=== PATIENT | female | born 1950 | race African-American/Black ===

== ENCOUNTER 2017-08-25 19:03 | Observation (INO) | payer MEDICARE ==
[~2017-08-25] VITALS: Ht 170.2 cm; Wt 81.8 kg
--- NOTE | ~2017-08-25 | DS ---
PATIENT:MISSY VAN :48 MEDICAL RECORD: [id number] DISCHARGE SUMMARY ADMISSION DATE: 08/25/17 DISCHARGE DATE: 08/26/17 DISCHARGE DIAGNOSES: 1. Chest pain. 2. History of mitral valve prolapse. HOSPITAL COURSE: Mrs. Van presents with chest pain; however, cardiac catheterization reveals no significant coronary artery disease, no mitral valve regurgitation. She was discharged home. No cardiac followup is necessary. TRANSINT:[id number] Voice Confirmation ID: [id number] DOCUMENT ID: [id number] SAHIL EUGENE MD at 1324 CC: [id number] DICTATION DATE: 08/26/17 1228 PEARL STRINGER: 08/27/17 0053 DIS IN 08/26/17 [place] [id number] [place] [address]
--- NOTE | ~2017-08-25 | OP ---
PATIENT NAME: MISSY VAN MEDICAL RECORD: [id number] :48 LOCATION:[facility] ADMISSION DATE:08/25/17 SURGEON: SAHIL EUGENE MD DATE OF OPERATION: 08/26/2017 PROCEDURES: 1. Left heart catheterization. 2. Selective coronary angiography. 3. Left ventriculogram. INDICATION: Angina and chest pain compatible with angina. PROCEDURE IN DETAIL: After informed consent was obtained and after detailed explanation of risks, benefits as well as alternative therapies, the patient elected to proceed with angiogram and heart catheterization. The right radial area was prepped and draped in normal sterile fashion. The right radial artery was cannulated via modified Seldinger technique with placement of 5-Ethiopian sheath. All catheters exchanged through this sheath. FINDINGS: Left ventriculogram was performed in standard 30-degree BUSTOS view, reveals good cardiac wall motion throughout all segments. Overall ejection fraction is 60%. SELECTIVE CORONARY ANGIOGRAPHY: Left main, left anterior descending, left circumflex, and right coronary artery are all smooth-walled vessels with no angiographic evidence of coronary artery disease. OVERALL IMPRESSION: 1. No angiographic evidence of coronary artery disease. 2. Normal left heart pressures. 3. Normal left ventricular systolic function. Chest pain is noncardiac in etiology. TRANSINT:[id number] Voice Confirmation ID: [id number] DOCUMENT ID: [id number] SAHIL EUGENE MD at 1324 CC: [id number] DICTATION DATE: 08/26/17 1227 BEEF GRINDER: 08/26/17 1349 DIS IN 08/26/17 [place] [address] [place] [id number]
--- NOTE | ~2017-08-25 | HEMODYNAMI ---
PATIENT:MISSY VAN MEDICAL RECORD: [id number] : 48 [id number] ADMISSION DATE: 08/25/17 Generatedon:08/26/201712:31 Patient name: MISSY VAN Patient #: [id number] SSN: D OB: 1950 Date of study: 08/26/2017 Page: Of Hemodynamic Procedure Report Patient Data Patient Demographics Procedure consent was obtained First Name: MISSY Gender: Female Last Name: CARLOTA : 1950 [facility] Initial: NOHEMY Age: 67 year(s) Patient #: [id number] Race: Black Additional ID: [id number] Contact details Address: [address] [place] [address] State: [place] City: [place] Zip code: [address] Past Medical History Allergies: No known allergies Admission Admission Data Admission Date: 08/25/2017 Admission Time: 23:38 Room #: D.2237 Lab Results Lab Result Date: 08/26/2017 Lab Result Time: 3:50 Biochemistry Name Units Result Min Max BUN mg/dl 22 --(----)-* 7 18 Creatinine mg/dl 0.8 --(-*--)-- 0.6 1.3 CBC Name Units Result Min Max Hematocrit % 39.2 -*(----)-- 42 54 Hemoglobin g/dl 12.8 -*(----)-- 13.5 17.5 Procedure Procedure Types Cath Procedure Diagnostic Procedure LHC Coronaries only Miscellaneous Procedures Moderate Sedation up to 15 minutes Procedure Description Procedure Date Procedure Date: 08/26/2017 Procedure Start Time: 12:20 Procedure End Time: 12:28 Procedure Staff Name Function Rod Sargent MD Performing Physician Claudy Pink RT Monitor Rosalba Christie RT Scrub Ryder Tobar RN Nurse Procedure Data Cath Procedure Fluoroscopy Diagnostic fluoroscopy Total fluoroscopy Time: 1.5 time: 1.5 min min Diagnostic fluoroscopy Total fluoroscopy dose: 191 dose: 191 mGy mGy Contrast Material Contrast Material Type Amount (ml) Isovue 300 31 Entry Location Entry Primary Successful Side Size Upsize Upsize Entry Closure Mendoza ccessful Closure Location (Fr) 1 (Fr) 2 (Fr) Remarks Device Remarks Radial Right 5 Fr Mechanical artery Compression Estimated blood loss: 5 ml Diagnostic catheters Device Type Used For End Catheter Placement DIAGNOSTIC [place] 110cm 5 Procedure Fr catheter ([id number]) Procedure Complications No complications Procedure Medications Medication Administration Route Dosage Oxygen NC 2 l/min Lidocaine 2% added to field 20 Heparin Flush Bag added to field 2 bags (1000units/500ml NS) 0.9% NaCl I.V. 100 ml/hr Radial Cocktail added to field 1 syringe (Verapomil 2mg/Nitro 400mcg/Heparin 1500units) Versed I.V. 1 mg Fentanyl I.V. 50 mcg Versed I.V. 1 mg Fentanyl I.V. 50 mcg Hemodynamics Rest HGB: 12.8 (g/dl) Heart Rate: 75 (bpm) Snapshots Pre Cath Intra NCS Post Cath Vital Signs Time Heart Resp SPO2 etCO2 NIBP Rhythm Pain Sedation Rate (ipm) (%) (mmHg) (mmHg) Status Level (bpm) 11:59:40 91 16 100 0 116/52(79) NSR 0 (11) 10(A) , No pain 12:04:23 86 15 99 6 117/58(89) NSR 0 (11) 10(A) , No pain 12:09:02 78 15 100 0 109/68(97) NSR 0 (11) 10(A) , No pain 12:13:42 73 16 100 5.2 112/61(84) NSR 0 (11) 10(A) , No pain 12:18:25 85 16 100 7.5 113/60(83) NSR 0 (11) 10(A) , No pain 12:23:08 105 15 100 15 86/57(79) NSR 0 (11) 9(A) , No pain 12:26:57 84 18 96 3 87/43(69) NSR 0 (11) 10(A) , No pain 12:28:56 78 6 11.2 87/50(68) NSR 0 (11) 10(A) , No pain 12:29:45 82 13 95 11.3 89/46(65) NSR 0 (11) 10(A) , No pain Medications Time Medication Route Dose Verified Delivered Reason Notes Effectiveness by by 12:07:03 Oxygen NC 2 l/min Rod Buffie used for Rosetta Tobar RN procedure 12:07:11 Lidocaine 2% added 20ml Rodlorelei Velasco for local to vial Rosetta Sargent MD anesthetic field 12:07:16 Heparin Flush added 2 bags Rod Velasco used for Bag to Rosetta Sargent MD procedure (1000units/500ml field NS) 12:07:26 0.9% NaCl I.V. 100 Rod Buffie Per ml/hr Rosetta Tobar RN physician 12:17:11 Radial Cocktail added 1 Rod Velasco for (Verapomil to syringe Rosetta Sargent MD vasodilation 2mg/Nitro field 400mcg/Heparin 1500units) 12:20:01 Fentanyl I.V. 50 mcg Rod Soler for sedation Rosetta Tobar RN 12:20:56 Versed I.V. 1 mg Rod Caiie for sedation Rosetta Tobar RN 12:22:52 Versed I.V. 1 mg Rod Buffie for sedation Rosetta Tobar RN 12:22:54 Fentanyl I.V. 50 mcg Rod Soler for sedation Rosetta Tobar RN Procedure Log Time Note 11:39:49 oRsalba Counts RT(R) sent for patient. Start room use. 11:43:39 Time tracking: Regular hours 11:43:43 Plan of Care:Hemodynamics will remain stable., Cardiac rhythm will remain stable., Comfort level will be maintained., Respiratory function will remain adequate., Patient/ family verbilizes understanding of procedure., Procedure tolerated without complication., Recovers from procedure without complications.. 11:43:52 H&P Date Dictated: 08/25/2017 Within 30 days and on chart.. 11:44:52 Lab Result : BUN 22 mg/dl 11:44:52 Lab Result : Hematocrit 39.2 % 11:44:52 Lab Result : Hemoglobin 12.8 g/dl 11:44:52 Lab Result : Creatinine 0.8 mg/dl 11:50:10 Patient received from Med/Surg to CCL 1 Alert and oriented. Tansferred to table in Supine position. 11:50:12 Warm blankets applied, and dru hugger turned on for patient comfort. 11:50:12 Correct patient and procedure confirmed by team. 11:50:14 Signed procedure consent form obtained from patient. 11:50:15 ECG and BP/O2 sat monitors applied to patient. 11:50:18 Pre-procedure instructions explained to patient. 11:50:18 Pre-op teaching completed and patient verbalized understanding. 11:50:23 Family in patients room. 11:50:25 Patient NPO since Midnight. 11:50:31 Patient allergic to No known allergies 11:57:50 Vital chart was started 11:57:55 Rhythm: sinus rhythm 11:57:58 Is the patient allergic to Iodine/contrast media? No. 11:58:00 Is patient on blood thinner?No 12:02:17 IV started by Ryder Tobar RN inleft hand with a 22 gauge IV catheter with 0.9% NaCl at KVO. 12:02:23 IV right wrist D/C'd due to need to relocate for procedure.. 12:02:30 Full Disclosure recording started 12:07:03 Oxygen 2 l/min NC was administered by Ryder Tobar RN; used for procedure; 12:07:11 Lidocaine 2% 20ml vial added to field was administered by Rod Sargent MD; for local anesthetic; 12:07:16 Heparin Flush Bag (1000units/500ml NS) 2 bags added to field was administered by Rod Sargent MD; used for procedure; 12:07:26 0.9% NaCl 100 ml/hr I.V. was administered by Ryder Tobar RN; Per physician; 12:09:45 Baseline sample Acquired. 12:09:48 Patient diabetic? No. 12:09:53 Previous problem with sedation/anesthesia? No ? 12:09:55 Snore? No 12:09:56 Sleep apnea? No 12:09:57 Deviated septum? No 12:09:57 Opens mouth fully? Yes 12:09:58 Sticks out tongue? Yes 12:10:00 Airway obstruction? No ? 12:10:04 Dentures? No ? 12:10:11 Modified Miki's test Ulnar < 7 seconds 12:10:13 Patient pain scale 0/10 ?. 12:10:17 Lab results completed and on chart. 12:10:20 Right Radial & Right Groin area was prepped with chlora-prep and draped in sterile fashion 12:10: Alarms reviewed by R. N. 12:10:21 Sharps counted by scrub and verified by R.N. 12:10:26 Use device set Radial Dx or PCI 12:10:29 MBrace Wrist Support ([id number]) opened to sterile field. 12:10:30 Tegaderm 4 x 4 (1626W) opened to sterile field. 12:10:30 ACIST Manifold (80552) opened to sterile field. 12:10:31 ACIST Hand Control (50206) opened to sterile field. 12:10:32 Bag Decanter (2002S) opened to sterile field. 12:10:32 Medline Cath Pack ([id number]) opened to sterile field. 12:10:33 ACIST Syringe (77900) opened to sterile field. 12:10:36 TR BAND Standard ([id number]) opened to sterile field. 12:10:38 NEEDLE Cook 21G 4cm Radial (J92714) opened to sterile field. 12:10:39 DIAGNOSTIC WIRE .035 260cm J wire (149876) opened to sterile field. 12:10:39 SHEATH 6FR Slender ([id number]) opened to sterile field. 12:17:11 Radial Cocktail (Verapomil 2mg/Nitro 400mcg/Heparin 1500units) 1 syringe added to field was administered by Rod Sargent MD; for vasodilation; 12:18:04 Zero performed for pressure channel P1 12:19:07 Physician arrived 12:19:07 --------ALL STOP TIME OUT------ 12:19:07 Final Timeout: patient, procedure, and site verified with staff and physician. All members of the team are in agreement. 12:19:09 Right Radial & Right Groin site verified by team. 12:19:11 Physical assessment completed. ASA score P 2 - A patient with mild systemic disease as per Rod Sargent MD. 12:19:14 Sedation plan: IV Moderate Sedation Medication:Versed, Fentanyl 12:20:01 Fentanyl 50 mcg I.V. was administered by Ryder Tobar RN; for sedation; 12:20:43 Procedure started. 12:20:55 Local anesthetic to right radial artery with Lidocaine 2% by Rod Sargent MD.INITIAL ACCESS ONLY 12:20:56 Versed 1 mg I.V. was administered by Ryder Tobar RN; for sedation; 12:: A 5 Fr sheath was inserted into the Right Radial artery 12::51 A DIAGNOSTIC [place] 110cm 5 Fr catheter ([id number]) was advanced over the wire and used for Procedure. 12::52 Versed 1 mg I.V. was administered by Ryder Tobar RN; for sedation; 12::54 Fentanyl 50 mcg I.V. was administered by Ryder Tobar RN; for sedation; 12::10 RCA angiography performed. 12:24:07 LCA angiography performed. 12:: Catheter removed. 12::19 Sheath removed intact; hemostasis achieved with Mechanical Compression to the Right Radial artery. 12::21 Procedure ended.(Physican Out) 12::53 Fluoroscopy time 01.50 minutes. 12::56 Fluoroscopy dose: 191 mGy 12::56 Flurop Dose total: 191 12::10 Contrast amount:Isovue 300 31ml. 12:26:12 Sharps counted by scrub and verified by R.N. 12:26:14 TR band inflated with 10cc of air. 12:26:29 Insertion/operative site no bleeding no hematoma. 12:26:36 Post right radial artery:stable, soft, clean and dry 12::38 Post Procedure Pulses reassessed and unchanged 12::40 Post-procedure physical assessment completed. ASA score P 2 - A patient with mild systemic disease as per Rod Sargent MD. 12:26:46 Post procedure rhythm: unchanged. 12::51 Estimated blood loss: 5 ml 12::53 Post procedure instruction explained to patient.Patient verbalizes understanding. 12::54 Patient needs reinforcement of post procedure teaching. 12:27:05 Procedure type changed to Cath procedure, Diagnostic procedure, LHC, Coronaries only, Miscellaneous Procedures, Moderate Sedation up to 15 minutes 12::38 Procedure and supply charges have been captured, reviewed, submitted and are correct. 12::41 Procedure Complication : No complications 12:27:43 Vital chart was stopped 12:27:46 See physician's report for complete and final results. 12:28:10 Report given to Pre/Post Procedure Room. 12:28:13 Patient transfered to Pre/Post Procedure Room with Stretcher. 12:28:15 Procedure ended. 12:28:15 Full Disclosure recording stopped 12:30:51 End room use (Document Last) Device Usage Item Name Manufacture Quantity Catalog Hospital Part Current Minima l Lot# / Number Charge Number Stock Stock Serial# Code MBrace Wrist Advanced 1 140-0250-00 [id number] 61473 280729 5 Support Vascular ([id number]) Dynamics Tegaderm 4 x 3M 1 1626W 578037 854763 202952 5 4 (1626W) ACIST Acist 1 04864 109175 278581 059187 5 Manifold Medical (09721) Systems Inc ACIST Hand Acist 1 09559 106467 462484 360640 5 Control Medical (04681) Systems Inc Bag Decanter Microtek 1 2001S 827333 48765 338728 5 (2001S) Medical Inc. Medline Cath Cardinal 1 [id number] 209627 82248 148319 5 Pack Health ([id number]) ACIST Acist 1 24212 968139 604079 842660 20 Syringe Medical (15645) Systems Inc TR BAND Terumo 1 [id number] 088131 063364 546162 40 Standard ([id number]) NEEDLE Cook Cook Medical 1 M24129 948265 057561 547294 5 21G 4cm Radial (A04026) DIAGNOSTIC St Miki 1 790444 100827 877863 558868 30 WIRE .035 260cm J wire (159035) SHEATH 6FR Terumo 1 [id number] 650862 553871 721659 40 Slender ([id number]) DIAGNOSTIC Terumo 1 40-0263 433975 381804 561845 5 [place] 110cm 5 Fr catheter (643893) Signature Audit Rodney Stage Time Signature Unsigned Intra-Procedure 08/26/2017 Claudy Pink 12:31:40 PM RT(R) Signatures Monitor : Claudy Pink RT Signature : Date : Time : [place] [address] [place] [address]
--- NOTE | ~2017-08-25 | HP ---
PATIENT: MISSY KAUR MEDICAL RECORD: [id number] ACCOUNT: [id number] LOCATION:[facility] : 48 ADMISSION DATE: 08/25/17 HISTORY AND PHYSICAL EXAMINATION DIAGNOSIS: Angina. HISTORY OF PRESENT ILLNESS: Mrs. Kaur has been having increasing episodes of chest pain and chest discomfort compatible with angina over the past few months and it got very severe yesterday, her pain was so severe that she says she passed out. She has continued to have episodes of chest pain today. REVIEW OF SYSTEMS: The patient reports easy bruising but reports no swollen glands. The patient reports no fever, no night sweats, no significant weight gain, no significant weight loss. No significant exercise tolerance. The patient reports no dry eyes, no irritation, no vision change. Patient reports no difficulty hearing and no ear pain. Patient reports no frequent nose bleeds or nose and sinus problems. Patient reports on arm pain on exertion. No shortness of breath while lying down. No history of heart murmur. Patient reports no cough, no wheezing or coughing up blood. Patient reports no abdominal pain, no vomiting. Normal appetite. No diarrhea and not vomiting blood. No nausea and no constipation. Patient reports no incontinence. No difficulty urinating. No hematuria. No increased frequency. Patient reports no muscle aches. No weakness, no arthralgias, no back pain. No swelling of the extremities. Patient reports no abnormal mole, no jaundice, no rashes. Reports no loss of consciousness. No weakness and no numbness. No seizures, dizziness, or headaches. The patient reports no depression, no sleep disturbance, feeling safe in a relationship and no alcohol abuse. Patient reports on fatigue. Reports no runny nose or sinus pressure. No itching, no hives, and no frequent sneezing. PHYSICAL EXAMINATION: GENERAL APPEARANCE: Well-nourished, well-developed, appears stated age. Level of distress, comfortable. PSYCHIATRIC: Mental status, alert, normal affect. Orientation, oriented to time, place and person. EYES: Lids and conjunctiva, noninjected. No discharge, no pallor. ENT: Lips, teeth, gums, normal dentition. Oropharynx, no cyanosis, no pallor. NECK: Carotid arteries, bilateral normal upstroke, no bruits, no thrills. JUGULAR VEINS: No jugular venous pressure or distention. CERVICAL LYMPH NODES: Nontender, nonenlarged. THYROID: Not enlarged. Nontender. No nodules. LUNGS: Respiratory effort, unlabored. CHEST: Normal curvature. No thoracic deformity. No chest wall tenderness. Percussion, resonant. Auscultation, clear. No wheezes, no rales, no rhonchi. CARDIOVASCULAR: Precordial exam, nondisplaced. No heaves or pericardial thrills. Rate and rhythm, regular. Heart sounds, normal S1, normal S2. No S3, no gallop, no rub. Systolic murmur, not heard. Diastolic murmur, not heard. EXTREMITIES: No cyanosis, no edema. Peripheral pulses, full and equal in all extremities, except as noted. No bruits appreciated. ABDOMEN: Soft, nondistended. Normal aorta. No bruit. Nontender. No masses. Liver, nontender, no hepatomegaly. Spleen, nontender, no splenomegaly. MUSCULOSKELETAL: No joint tenderness. No joint swelling. No erythema. NEUROLOGICAL: Normal gait, normal strength, normal tone. SKIN: Warm and dry. HISTORY AND PHYSICAL [id number] MISSY KAUR OVERALL IMPRESSION: Increasing episodes of chest pain, very compatible with angina. We will proceed with coronary angiography. Further care depends upon findings of the angiography. TRANSINT:[id number] Voice Confirmation ID: [id number] DOCUMENT ID: [id number] SAHIL EUGENE MD at 1324 CC: [id number] DICTATION DATE: 08/26/17815 DRUM PULLER: 08/26/17 0850 DIS IN 08/26/17 [place] [address]
[2017-08-25 20:07] LABS: HEMATOCRIT 41.7 % (36.0-48.0); HEMOGLOBIN 13.7 g/dL (12-16); MCHC 32.9 g/dL (31.0-37.0); MCV 88.2 fL (80.0-100.0); MEAN PLATELET VOLUME 10.9 fL (7.4-10.4); PLATELET COUNT 276 10x3/uL (130-400); RBC 4.73 10x6/uL (4.00-5.40); RDW 13.2 % (11.5-14.5); WBC 6.1 10x3/uL (4.8-10.8)
[2017-08-25 20:12] LABS: ALBUMIN 3.8 g/dL (3.4-5.0); ALKALINE PHOSPHATASE 73 U/L (46-116); ALT (SGPT) 24 U/L (10-68); BILIRUBIN - TOTAL 0.42 mg/dL (0.2-1.3); CALCIUM 9.8 mg/dL (8.5-10.1); CARBON DIOXIDE 26.8 mmol/L (21.0-32.0); CREATINE KINASE 155 UL (21-215); GLUCOSE 97 mg/dL (74-106); PROTEIN - SERUM 7.5 g/dL (6.4-8.2); UREA NITROGEN 14 mg/dL (7-18); eGFR NON AFRICAN AMERICAN 58 mL/min (90-120)
[2017-08-25 20:31] LABS: CALC OSMOLALITY 281 mosm/kg (275-300); CHLORIDE - SERUM 106 mmol/L (98-107); POTASSIUM - SERUM 3.5 mmol/L (3.5-5.1); SODIUM 141 mmol/L (136-145)
[2017-08-25 20:43] LABS: TROPONIN-I < 0.017 ng/mL (0.000-0.060)
[2017-08-25 20:50] LABS: BASOPHILS 2 % (0-2); LYMPHOCYTES 60 % (15-50); MONOCYTES 6 % (2-11); NEUTROPHILS 31 % (40-80); PLATELET ESTIMATE NORMAL
[2017-08-25 23:39] LABS: CKMB 1.1 U/L (0.0-3.6); CREATINE KINASE 130 UL (21-215); TROPONIN-I < 0.017 ng/mL (0.000-0.060)
[2017-08-26] MEDS ORDERED: AMBIEN10 MG PO (00:59)
[2017-08-26] MEDS ORDERED: AUGMENTIN 500-11 TA1 PO (00:59)
[2017-08-26] MEDS ORDERED: NORVASC5 MG PO (01:00)
[2017-08-26 01:27] VITALS: BP 110/69; Ht 170.2 cm; Wt 81.8 kg
[2017-08-26 02:16] VITALS: BP 110/69
[2017-08-26 04:00] VITALS: BP 91/46
[2017-08-26 04:01] LABS: BASOPHILS 0.4 % (0-2); EOSINOPHILS 2.6 % (0-7); HEMATOCRIT 39.2 % (36.0-48.0); HEMOGLOBIN 12.8 g/dL (12-16); LYMPHOCYTES 47.7 % (15-50); MCH 28.9 pg (26.0-34.0); MCHC 32.7 g/dL (31.0-37.0); MCV 88.5 fL (80.0-100.0); MEAN PLATELET VOLUME 10.3 fL (7.4-10.4); MONOCYTES 12.6 % (2-11); NEUTROPHILS 36.7 % (40-80); PLATELET COUNT 247 10x3/uL (130-400); RBC 4.43 10x6/uL (4.00-5.40); RDW 13.1 % (11.5-14.5); WBC 5.5 10x3/uL (4.8-10.8)
[2017-08-26 04:17] LABS: ALBUMIN 3.5 g/dL (3.4-5.0); ALKALINE PHOSPHATASE 62 U/L (46-116); ALT (SGPT) 20 U/L (10-68); CALC OSMOLALITY 288 mosm/kg (275-300); CALCIUM 8.8 mg/dL (8.5-10.1); CARBON DIOXIDE 22.7 mmol/L (21.0-32.0); CHLORIDE - SERUM 110 mmol/L (98-107); CREATININE - SERUM 0.8 mg/dL (0.6-1.3); GLUCOSE 89 mg/dL (74-106); POTASSIUM - SERUM 3.9 mmol/L (3.5-5.1); PROTEIN - SERUM 6.6 g/dL (6.4-8.2); SODIUM 144 mmol/L (136-145); UREA NITROGEN 22 mg/dL (7-18); eGFR NON AFRICAN AMERICAN 75 mL/min (90-120)
[2017-08-26 04:26] LABS: CKMB 0.7 U/L (0.0-3.6); CREATINE KINASE 115 UL (21-215)
[2017-08-26 04:30] LABS: TROPONIN-I < 0.017 ng/mL (0.000-0.060)
[2017-08-26 08:57] VITALS: BP 117/57
[2017-08-26 10:53] LABS: CKMB 0.8 U/L (0.0-3.6); CREATINE KINASE 102 UL (21-215)
[2017-08-26 11:01] LABS: TROPONIN-I < 0.017 ng/mL (0.000-0.060)
== END 2017-08-26 14:41 | disposition home or self-care (01) ==
LOC: D.ER 19:03 → OBSVTIME 23:38 → D.MS 23:38 → D.CLR 08-26 12:48
PROVIDERS: Family Medicine
DX: R07.89 Other chest pain (principal)